=== PATIENT | male | born 1955 | race Two or more races ===

== ENCOUNTER → 2020-01-25 07:00 | Outpatient (CLI) | payer OTHER ==
[~2020-01-25] VITALS: Ht 167.6 cm; Wt 76.2 kg
[~2020-01-25 07:00] MED LIST: AMOX1TAB12 PO; B-12500 MCG PO; CLONAZEPAM1 MG PO; DOCUSATE SODIU100 MG PO; GABAPENTIN800 MG PO; PERCOCET 5-3251 EACH PO
== END | disposition home or self-care (01) ==
LOC: LAB 07:00 → EDSTATUS 02-01 11:30 → SURH 02-01 11:30
PROVIDERS: ATTEND Orthopaedic Surgery Orthopaedic Surgery of the Spine
DX: U07.1 COVID-19 (principal); Z01.812 Encounter for preprocedural laboratory examination; M50.023 Cervical disc disorder at C6-C7 level with myelopathy

== ENCOUNTER 2020-05-29 12:45 | Day surgery (SDC) | payer OTHER ==
[~2020-05-29] VITALS: Ht 167.6 cm; Wt 77.1 kg
[2020-05-29] MEDS ORDERED: DIAZEPAM5 MG PO (17:12)
[2020-05-29] MEDS ORDERED: PERCOCET 5-3251 EACH PO (17:12)
[2020-05-29] MEDS ORDERED: MEDROLPACK PO (17:12)
[2020-05-29] MEDS ORDERED: COLACE100 MG PO (17:12)
== END 2020-05-30 07:11 | disposition home or self-care (01) ==
LOC: CIR.AMB 12:45 → SURH 15:30 → SURG 20:23 → O/R 20:23 → CIR.AMB 05-30 07:11 → SURG 05-30 12:40 → CIR.AMB 05-30 12:45
PROVIDERS: ATTEND Orthopaedic Surgery Orthopaedic Surgery of the Spine
DX: M50.021 Cervical disc disorder at C4-C5 level with myelopathy (principal)